=== PATIENT | male | born 1945 | race Caucasian/White ===

== ENCOUNTER → 2017-09-11 | Outpatient (CLI) | payer OTHER ==
[~2017-09-11] MED LIST: COLC0.6T37 PO; FINA5TAB4 PO; FISH OIL PO; FISH1CAP PO; GABA800T2 PO; LOVA40TA2 PO; METO25TA35 PO; MULT-412 PO; OXYC-302 PO; PROPRANOLOL PO; TERA10CA3 PO; VITAMIN B PO
== END | disposition home or self-care (01) ==
LOC: STAR 11:39
PROVIDERS: ATTEND Surgery
DX: Z01.818 Encounter for other preprocedural examination (principal); M79.3 Panniculitis, unspecified; B37.2 Candidiasis of skin and nail
CPT/HCPCS: 93005

== ENCOUNTER 2017-09-18 12:06 | Day surgery (SDC) | payer OTHER ==
[~2017-09-18] VITALS: Ht 190.5 cm; Wt 105.8 kg
[2017-09-18] MEDS ORDERED: LACTATED RINGERS 1,000 ML IV SCH (13:23)
[2017-09-18 13:27] VITALS: BP 137/90
[2017-09-18] MEDS ORDERED: GABAPENTIN 300 MG CAPSULE PO ONE (13:30)
[2017-09-18] MEDS ORDERED: ACETAMINOPHEN 500 MG TABLET PO ONE (13:30)
[2017-09-18] MEDS ORDERED: FAMOTIDINE 20 MG TABLET PO ONE (13:30)
[2017-09-18] MEDS ORDERED: OXYcodone IR 5MG TABLET PO ONE (13:30)
[2017-09-18] MEDS ORDERED: MIDAZOLAM 1 MG/ML, 2ML ONE (14:05)
[2017-09-18] MEDS ORDERED: FENTANYL PF 100 MCG/2ML ONE ×2 (14:05→16:18)
[2017-09-18] MEDS ORDERED: BUPIVACAINE/PF 0.5% ONE (14:42)
[2017-09-18] MEDS ORDERED: EPINEPHRINE 1 MG/ML, 1ML ONE (14:42)
[2017-09-18] MEDS ORDERED: DEXAMETHASONE 4 MG/ML, 1ML ONE (14:59)
[2017-09-18] MEDS ORDERED: KETOROLAC 30 MG/1 ML ONE (14:59)
[2017-09-18] MEDS ORDERED: PROPOFOL 10 MG/ML, 20ML ONE (14:59)
[2017-09-18] MEDS ORDERED: ONDANSETRON 2MG/ML, 2ML ONE (14:59)
[2017-09-18] MEDS ORDERED: CEFAZOLIN 1,000 MG ONE (14:59)
[2017-09-18] MEDS ORDERED: MEPERIDINE/PF 25MG/0.5ML IVPush PRN (16:00)
[2017-09-18] MEDS ORDERED: PROMETHAZINE 12.5 MG SUPP PR PRN (16:00)
[2017-09-18] MEDS ORDERED: ALBUTEROL SULFATE 2.5 MG/3 ML NPPB PRN (16:00)
[2017-09-18] MEDS ORDERED: METOPROLOL 1 MG/ML, 5ML IV PRN (16:00)
[2017-09-18] MEDS ORDERED: OXYcodone 5 MG/5 ML ORAL.SOL UDC PO PRN (16:00)
[2017-09-18] MEDS ORDERED: EPHEDRINE 50 MG/ML, 1ML IVPush PRN (16:00)
[2017-09-18] MEDS ORDERED: morphine SULFATE 10 MG/ML, 1ML IV PRN (16:00)
[2017-09-18] MEDS ORDERED: MIDAZOLAM 1 MG/ML, 2ML IV PRN (16:00)
[2017-09-18] MEDS ORDERED: hydrALAzine 20 MG/ML, 1ML IV PRN (16:00)
[2017-09-18] MEDS ORDERED: LABETALOL 5MG/ML, 20ML IV PRN (16:00)
[2017-09-18] MEDS ORDERED: HYDROcodone/APAP 7.5-325MG/15ML UDC PO PRN (16:00)
[2017-09-18] MEDS ORDERED: PROMETHAZINE 25 MG/ML, 1ML IV PRN (16:00)
[2017-09-18] MEDS ORDERED: DIAZEPAM 5 MG/ML, 2ML IVPush PRN (16:00)
[2017-09-18] MEDS ORDERED: ONDANSETRON 2MG/ML, 2ML IVPush PRN (16:00)
[2017-09-18] MEDS: FENTANYL PF 100 MCG/2ML IV PRN ×3 (16:15→16:50)
[2017-09-18] MEDS ORDERED: MORPHINE SULFATE 4 MG/ML, 1ML ONE (16:46)
== END 2017-09-18 19:40 ==
LOC: OUT 12:06
PROVIDERS: ATTEND Surgery
DX: M79.3 Panniculitis, unspecified (principal); Z98.890 Other specified postprocedural states; Z87.442 Personal history of urinary calculi
CPT/HCPCS: 15830; 88300; J0171; J0690; J1100; J1885; J2250; J2270; J2405; J2704; J3010; J3490; J7120